=== PATIENT | female | born 1975 | race Hispanic/Latino ===

== ENCOUNTER 2018-04-06 03:38 | Emergency (ER) | payer SELFPAY ==
[~2018-04-06] VITALS: Ht 144.8 cm; Wt 54.0 kg
[~2018-04-06 03:38] MED LIST: CIPROFLOXACN500 MG PO; FLEXERIL PO; LORTAB 10 PO; NO; TOBRAMYCIN0.3 % OD; ULTRAM50 M1 PO; ZOFRAN ODT4 MG PO
[2018-04-06 04:31] LABS: HEMATOCRIT 34.8 % (37.0-47.0); IMMATURE GRANULOCYTES 0.4 % (0.0-1.0); MEAN CELL VOLUME 92.6 fL CALC (80.0-100.0); MEAN CORPUSCULAR HGB 31.6 pG CALC (26.0-32.0); MEAN CORPUSCULAR HGB CONC 34.2 g/L CALC (32.0-36.0); NEUT# 5.77 thou/uL (2.00-7.15); RED BLOOD COUNT 3.76 mill/uL (4.20-5.60); RED CELL DISTRI WIDTH 12.5 % (11.5-15.5)
[2018-04-06 04:32] LABS: HEMOGLOBIN 11.9 g/dl (12.0-16.0)
[2018-04-06 04:34] LABS: URINE BILIRUBIN - DIPSTICK NEGATIVE (NEGATIVE); URINE BLOOD DIPSTICK MODERATE (NEGATIVE); URINE CLARITY SL CLOUDY; URINE COLOR YELLOW; URINE GLUCOSE - DIPSTICK NEGATIVE (NEGATIVE); URINE KETONE NEGATIVE (NEGATIVE); URINE LEUK ESTERASE NEGATIVE (NEGATIVE); URINE NITRITE - DIPSTICK NEGATIVE (Negative); URINE PH 7.5 (4.5-8.0); URINE PROTEIN - DIPSTICK TRACE mg/dL (NEG-TRACE)
[2018-04-06 04:40] LABS: URINE AMORPH SEDIMENT MANY hpf (NONE-FEW); URINE BACTERIA FEW hpf; URINE COARSE GRANULAR CAST FEW lpf; URINE MUCUS MODERATE hpf (NONE-FEW); URINE SQUAMOUS EPITHELIAL CELL FEW EPI/hpf (0-FEW)
[2018-04-06 04:45] LABS: ALBUMIN 3.9 g/dL (3.2-5.0); ALKALINE PHOSPHATASE 72 u/l (38-126); AMYLASE 68 u/l (30-110); ANION GAP 9 (6-22 (CALC)); BILIRUBIN, TOTAL 1.1 mg/dL (0.0-1.4); BUN 13 mg/dL (7-17); BUN/CREATININE RATIO 28 (12-20 (CALC)); CARBON DIOXIDE 27 mmol/l (22-30); CHLORIDE 106 mmol/l (95-108); CREATININE 0.5 mg/dL (0.5-1.0); GFR > 60 ML/MIN (>=60 (CALC)); GFR FOR AFR.AMER. > 60 ML/MIN (>=60 (CALC)); LIPASE 36 u/l (23-300); POTASSIUM 3.4 mmol/l (3.5-5.1); SGOT/AST 36 u/l (14-36); SGPT/ALT 48 u/l (9-52); SODIUM 139 mmol/l (137-146); TOTAL PROTEIN 7.1 g/dL (6.3-8.2)
[2018-04-06] MEDS ORDERED: TRAMADOL HCL50 MG PO (06:51)
[2018-04-06] MEDS ORDERED: PHENERGAN25 M1 PR (06:51)
[2018-04-06 06:57] VITALS: BP 120/70
== END 2018-04-06 06:59 | disposition home or self-care (01) | DRG 446 ==
LOC: ED 03:38
PROVIDERS: Family Medicine
DX: K80.00 Calculus of gallbladder with acute cholecystitis without obstruction (principal)

== ENCOUNTER 2019-10-04 | Inpatient (IN) | payer MEDICAID ==
[2019-10-03 08:59] LABS: HEMATOCRIT 37.3 % (37.0-47.0); HEMOGLOBIN 12.3 g/dl (12.0-16.0); IMMATURE GRANULOCYTES 0.5 % (0.0-5.0); MEAN CELL VOLUME 92.8 fL CALC (80.0-100.0); MEAN CORPUSCULAR HGB 30.6 pG CALC (26.0-32.0); RED BLOOD COUNT 4.02 mill/uL (4.20-5.60); RED CELL DISTRI WIDTH 12.7 % (11.5-15.5)
[2019-10-03 09:14] LABS: ANION GAP 13 (6-22 (CALC)); BUN 6 mg/dL (7-17); BUN/CREATININE RATIO 14 (12-20 (CALC)); CARBON DIOXIDE 27 mmol/l (22-30); CHLORIDE 102 mmol/l (95-108); CREATININE 0.4 mg/dL (0.5-1.0); GFR > 60 ML/MIN (>=60 (CALC)); GFR FOR AFR.AMER. > 60 ML/MIN (>=60 (CALC)); LIPASE 50 u/l (23-300); POTASSIUM 3.7 mmol/l (3.5-5.1); SODIUM 138 mmol/l (137-146); TOTAL PROTEIN 7.7 g/dL (6.3-8.2)
[2019-10-03 09:16] LABS: ALKALINE PHOSPHATASE 307 u/l (38-126); BILIRUBIN, TOTAL 1.7 mg/dL (0.0-1.4); SGOT/AST 324 u/l (14-36)
[2019-10-03 10:32] LABS: URINE BILIRUBIN - DIPSTICK NEGATIVE (NEGATIVE); URINE BLOOD DIPSTICK SMALL (NEGATIVE); URINE COLOR YELLOW; URINE GLUCOSE - DIPSTICK NEGATIVE (NEGATIVE); URINE KETONE TRACE mg/dL (NEGATIVE); URINE LEUK ESTERASE SMALL (NEGATIVE); URINE NITRITE - DIPSTICK NEGATIVE (Negative); URINE PROTEIN - DIPSTICK NEGATIVE (NEG-TRACE)
[2019-10-03 10:33] LABS: URINE BACTERIA FEW hpf; URINE EPITHELIAL CELLS FEW EPI/hpf (0-FEW)
[2019-10-03 14:07] VITALS: BP 98/62
[2019-10-03 15:39] VITALS: BP 98/59
[2019-10-03 19:04] VITALS: BP 91/52
[2019-10-04] VITALS (11 sets, daily range): BP systolic 91–110; BP diastolic 44–57
[~2019-10-04] MED LIST changes: +LEVOTHYROXIN50 MC1 PO; +PHENERGAN25 M1 PR; +TRAMADOL HCL50 MG PO
[2019-10-04 05:51] LABS: HEMATOCRIT 35.3 % (37.0-47.0); HEMOGLOBIN 11.7 g/dl (12.0-16.0); IMMATURE GRANULOCYTES 0.7 % (0.0-5.0); MEAN CELL VOLUME 92.4 fL CALC (80.0-100.0); MEAN CORPUSCULAR HGB 30.6 pG CALC (26.0-32.0); MEAN CORPUSCULAR HGB CONC 33.1 g/L CALC (32.0-36.0); NEUT# 11.01 thou/uL (2.00-7.15); RED BLOOD COUNT 3.82 mill/uL (4.20-5.60); RED CELL DISTRI WIDTH 13.3 % (11.5-15.5)
[2019-10-04 06:16] LABS: ALKALINE PHOSPHATASE 261 u/l (38-126); ANION GAP 12 (6-22 (CALC)); BUN 6 mg/dL (7-17); BUN/CREATININE RATIO 11 (12-20 (CALC)); CARBON DIOXIDE 24 mmol/l (22-30); CHLORIDE 103 mmol/l (95-108); CREATININE 0.5 mg/dL (0.5-1.0); GFR > 60 ML/MIN (>=60 (CALC)); GFR FOR AFR.AMER. > 60 ML/MIN (>=60 (CALC)); POTASSIUM 4.3 mmol/l (3.5-5.1); SGOT/AST 207 u/l (14-36); SODIUM 135 mmol/l (137-146)
[2019-10-04 06:17] LABS: ALBUMIN 3.1 g/dL (3.2-5.0); BILIRUBIN, TOTAL 4.4 mg/dL (0.0-1.4); TOTAL PROTEIN 6.1 g/dL (6.3-8.2)
[2019-10-04 13:41] LABS: HEMATOCRIT 33.5 % (37.0-47.0)
[2019-10-05 00:28] VITALS: BP 95/61
[2019-10-05 02:33] VITALS: BP 96/43
[2019-10-05 04:44] LABS: IMMATURE GRANULOCYTES 0.7 % (0.0-5.0); MEAN CORPUSCULAR HGB 30.6 pG CALC (26.0-32.0); MEAN CORPUSCULAR HGB CONC 32.6 g/L CALC (32.0-36.0); NEUT# 6.12 thou/uL (2.00-7.15); RED BLOOD COUNT 2.84 mill/uL (4.20-5.60); RED CELL DISTRI WIDTH 13.6 % (11.5-15.5)
[2019-10-05 04:47] LABS: HEMATOCRIT 26.7 % (37.0-47.0); HEMOGLOBIN 8.7 g/dl (12.0-16.0)
[2019-10-05 05:04] LABS: ALKALINE PHOSPHATASE 154 u/l (38-126); BILIRUBIN, TOTAL 3.4 mg/dL (0.0-1.4); BUN 4 mg/dL (7-17); BUN/CREATININE RATIO 10 (12-20 (CALC)); CARBON DIOXIDE 24 mmol/l (22-30); CHLORIDE 106 mmol/l (95-108); CREATININE 0.4 mg/dL (0.5-1.0); GFR > 60 ML/MIN (>=60 (CALC)); GFR FOR AFR.AMER. > 60 ML/MIN (>=60 (CALC)); SGOT/AST 149 u/l (14-36); SODIUM 136 mmol/l (137-146); TOTAL PROTEIN 4.9 g/dL (6.3-8.2)
[2019-10-05 05:10] VITALS: BP 94/63
[2019-10-05 05:11] LABS: ALBUMIN 2.3 g/dL (3.2-5.0); ANION GAP 9 (6-22 (CALC)); POTASSIUM 3.1 mmol/l (3.5-5.1)
[2019-10-05 07:38] VITALS: BP 103/41
[2019-10-05 13:12] LABS: URINE BLOOD DIPSTICK LARGE (NEGATIVE); URINE CLARITY CLEAR; URINE COLOR YELLOW; URINE GLUCOSE - DIPSTICK NEGATIVE (NEGATIVE); URINE KETONE NEGATIVE (NEGATIVE); URINE LEUK ESTERASE NEGATIVE (Negative); URINE NITRITE - DIPSTICK NEGATIVE (Negative); URINE PROTEIN - DIPSTICK NEGATIVE (NEG-TRACE); URINE SPECIFIC GRAVITY 1.015
[2019-10-05 13:47] LABS: URINE BILIRUBIN - DIPSTICK MODERATE (NEGATIVE)
[2019-10-05 13:53] LABS: HEMOGLOBIN 9.3 g/dl (12.0-16.0)
[2019-10-05 14:02] LABS: URINE RBC 25-50 RBC/hpf (0-5); URINE SQUAMOUS EPITHELIAL CELL FEW EPI/hpf (0-FEW)
[2019-10-05 16:00] VITALS: BP 94/60
[2019-10-05 18:45] VITALS: BP 109/58
[2019-10-06] VITALS (11 sets, daily range): BP systolic 87–115; BP diastolic 43–59
[2019-10-06 05:14] LABS: HEMATOCRIT 23.4 % (37.0-47.0); HEMOGLOBIN 7.7 g/dl (12.0-16.0); IMMATURE GRANULOCYTES 0.6 % (0.0-5.0); MEAN CELL VOLUME 93.2 fL CALC (80.0-100.0); MEAN CORPUSCULAR HGB 30.7 pG CALC (26.0-32.0); MEAN CORPUSCULAR HGB CONC 32.9 g/L CALC (32.0-36.0); NEUT# 3.46 thou/uL (2.00-7.15); RED BLOOD COUNT 2.51 mill/uL (4.20-5.60); RED CELL DISTRI WIDTH 13.8 % (11.5-15.5)
[2019-10-06 05:33] LABS: ALBUMIN 2.2 g/dL (3.2-5.0); ALKALINE PHOSPHATASE 132 u/l (38-126); BUN 3 mg/dL (7-17); BUN/CREATININE RATIO 8 (12-20 (CALC)); CARBON DIOXIDE 25 mmol/l (22-30); CHLORIDE 108 mmol/l (95-108); CREATININE 0.4 mg/dL (0.5-1.0); GFR > 60 ML/MIN (>=60 (CALC)); GFR FOR AFR.AMER. > 60 ML/MIN (>=60 (CALC)); SGOT/AST 72 u/l (14-36); SODIUM 137 mmol/l (137-146); TOTAL PROTEIN 4.5 g/dL (6.3-8.2)
[2019-10-06 05:38] LABS: ANION GAP 8 (6-22 (CALC)); POTASSIUM 4.1 mmol/l (3.5-5.1)
[2019-10-06 22:05] LABS: HEMATOCRIT 32.9 % (37.0-47.0); HEMOGLOBIN 11.1 g/dl (12.0-16.0)
[2019-10-07 05:04] LABS: HEMATOCRIT 32.4 % (37.0-47.0); HEMOGLOBIN 11.2 g/dl (12.0-16.0); MEAN CORPUSCULAR HGB 31.1 pG CALC (26.0-32.0); MEAN CORPUSCULAR HGB CONC 34.6 g/L CALC (32.0-36.0); RED BLOOD COUNT 3.6 mill/uL (4.20-5.60)
[2019-10-07 05:13] VITALS: BP 112/69
[2019-10-07 05:32] LABS: ALBUMIN 2.4 g/dL (3.2-5.0); ALKALINE PHOSPHATASE 155 u/l (38-126); ANION GAP 9 (6-22 (CALC)); BUN 5 mg/dL (7-17); BUN/CREATININE RATIO 14 (12-20 (CALC)); CARBON DIOXIDE 25 mmol/l (22-30); CHLORIDE 107 mmol/l (95-108); CREATININE 0.4 mg/dL (0.5-1.0); GFR > 60 ML/MIN (>=60 (CALC)); GFR FOR AFR.AMER. > 60 ML/MIN (>=60 (CALC)); POTASSIUM 3.7 mmol/l (3.5-5.1); SGOT/AST 98 u/l (14-36); SODIUM 137 mmol/l (137-146); TOTAL PROTEIN 5.1 g/dL (6.3-8.2)
[2019-10-07 05:45] LABS: BILIRUBIN, TOTAL 5.1 mg/dL (0.0-1.4)
[2019-10-07 07:43] VITALS: BP 110/63
[2019-10-07 15:47] VITALS: BP 115/69
[2019-10-07 18:38] VITALS: BP 108/66
[2019-10-08 04:12] VITALS: BP 101/61
[2019-10-08 05:17] LABS: HEMOGLOBIN 10.5 g/dl (12.0-16.0)
[2019-10-08 05:34] LABS: ALBUMIN 2.5 g/dL (3.2-5.0); TOTAL PROTEIN 5.1 g/dL (6.3-8.2)
[2019-10-08 05:46] LABS: BILIRUBIN, TOTAL 2.3 mg/dL (0.0-1.4)
[2019-10-08 08:46] VITALS: BP 118/66
[2019-10-08 14:55] VITALS: BP 118/72
[2019-10-08 19:20] VITALS: BP 111/71
[2019-10-09 03:55] VITALS: BP 119/64
[2019-10-09 07:50] VITALS: BP 123/73
[2019-10-09 15:05] VITALS: BP 122/62
[2019-10-09 18:35] VITALS: BP 127/80
[2019-10-09 22:49] LABS: HEMATOCRIT 38.6 % (37.0-47.0); HEMOGLOBIN 12.7 g/dl (12.0-16.0)
[2019-10-10 04:00] VITALS: BP 118/71
[2019-10-10 05:10] LABS: HEMATOCRIT 38.4 % (37.0-47.0); HEMOGLOBIN 12.7 g/dl (12.0-16.0); IMMATURE GRANULOCYTES 3.8 % (0.0-5.0); MEAN CELL VOLUME 91.9 fL CALC (80.0-100.0); MEAN CORPUSCULAR HGB 30.4 pG CALC (26.0-32.0); MEAN CORPUSCULAR HGB CONC 33.1 g/L CALC (32.0-36.0); NEUT# 5.4 thou/uL (2.00-7.15); RED BLOOD COUNT 4.18 mill/uL (4.20-5.60); RED CELL DISTRI WIDTH 13.8 % (11.5-15.5)
[2019-10-10 05:44] LABS: ALKALINE PHOSPHATASE 198 u/l (38-126); BILIRUBIN, TOTAL 1.8 mg/dL (0.0-1.4); BUN 6 mg/dL (7-17); BUN/CREATININE RATIO 16 (12-20 (CALC)); CARBON DIOXIDE 25 mmol/l (22-30); CHLORIDE 103 mmol/l (95-108); CREATININE 0.3 mg/dL (0.5-1.0); GFR > 60 ML/MIN (>=60 (CALC)); GFR FOR AFR.AMER. > 60 ML/MIN (>=60 (CALC)); SGOT/AST 68 u/l (14-36); SODIUM 137 mmol/l (137-146)
[2019-10-10 05:57] LABS: ALBUMIN 3.3 g/dL (3.2-5.0); ANION GAP 14 (6-22 (CALC)); POTASSIUM 4.5 mmol/l (3.5-5.1); TOTAL PROTEIN 6.4 g/dL (6.3-8.2)
[2019-10-10 08:04] VITALS: BP 102/66
[2019-10-10] MEDS ORDERED: CIPROFLOXACIN500 M1 PO (12:37)
[2019-10-10] MEDS ORDERED: PERCOCET 5/325M1 TAB PO (12:37)
[2019-10-10 15:50] VITALS: BP 100/62
[2019-10-10 19:31] VITALS: BP 106/66
[2019-10-10 22:19] LABS: HEMATOCRIT 39.9 % (37.0-47.0); HEMOGLOBIN 13.3 g/dl (12.0-16.0)
[2019-10-11 03:15] VITALS: BP 109/62
[2019-10-11 07:43] VITALS: BP 119/72
[2019-10-11 08:17] LABS: HEMATOCRIT 39.5 % (37.0-47.0); HEMOGLOBIN 13.4 g/dl (12.0-16.0); MEAN CELL VOLUME 90.6 fL CALC (80.0-100.0); MEAN CORPUSCULAR HGB 30.7 pG CALC (26.0-32.0); MEAN CORPUSCULAR HGB CONC 33.9 g/L CALC (32.0-36.0); NEUT# 8.39 thou/uL (2.00-7.15); RED BLOOD COUNT 4.36 mill/uL (4.20-5.60); RED CELL DISTRI WIDTH 13.6 % (11.5-15.5)
[2019-10-11 08:29] LABS: ALBUMIN 3.9 g/dL (3.2-5.0); BILIRUBIN, TOTAL 1.8 mg/dL (0.0-1.4)
[2019-10-11 08:31] LABS: TOTAL PROTEIN 7.7 g/dL (6.3-8.2)
[2019-10-11 15:00] VITALS: BP 110/61
[2019-10-11 18:27] VITALS: BP 106/65
[2019-10-12 04:18] VITALS: BP 95/57
[2019-10-12 05:20] LABS: HEMATOCRIT 38.7 % (37.0-47.0); HEMOGLOBIN 12.5 g/dl (12.0-16.0)
[2019-10-12 07:24] VITALS: BP 90/51
== END 2019-10-12 15:02 | disposition home or self-care (01) | DRG 409 ==
PROVIDERS: Family Medicine; ADMIT Surgery
PROC: 0F170ZB Bypass Common Hepatic Duct to Small Intestine, Open Approach (ICD-10-PCS; principal; 2019-10-04)
PROC: 0FT40ZZ Resection of Gallbladder, Open Approach (ICD-10-PCS; 2019-10-04)
PROC: 0FJ44ZZ Inspection of Gallbladder, Percutaneous Endoscopic Approach (ICD-10-PCS; 2019-10-04)
PROC: 0FC90ZZ Extirpation of Matter from Common Bile Duct, Open Approach (ICD-10-PCS; 2019-10-04)
PROC: BF00YZZ Plain Radiography of Bile Ducts using Other Contrast (ICD-10-PCS; 2019-10-04)
PROC: 30233N1 Transfusion of Nonautologous Red Blood Cells into Peripheral Vein, Percutaneous Approach (ICD-10-PCS; 2019-10-06)
PROC: 30233N1 Transfusion of Nonautologous Red Blood Cells into Peripheral Vein, Percutaneous Approach (ICD-10-PCS; 2019-10-06)
DX: K83.3 Fistula of bile duct (principal); K80.62 Calculus of gallbladder and bile duct with acute cholecystitis without obstruction; E03.9 Hypothyroidism, unspecified; E80.6 Other disorders of bilirubin metabolism; B96.89 Other specified bacterial agents as the cause of diseases classified elsewhere
CPT/HCPCS: J0131; J2710; P9016; Q9967